=== PATIENT | female | born 1990 | race Caucasian/White ===

== ENCOUNTER 2024-09-21 06:13 | Day surgery (SDC) | payer OTHER ==
[2024-09-15 16:46] VITALS: BMI 27.4
[2024-09-21] MEDS ORDERED: ROCURONIUM BROMIDE 50 MG/5 ML SYRINGE ONE (11:46)
[2024-09-21] MEDS ORDERED: PROPOFOL 20 ML ONE (11:46)
[2024-09-21] MEDS ORDERED: MIDAZOLAM HCL 2 MG/2 ML SINGLE DOSE VIAL ONE (11:47)
[2024-09-21] MEDS ORDERED: NEOSTIGMINE METHYLSULFATE 0.5 MG/1 ML - 10 ML MDV ONE (12:31)
[2024-09-21] MEDS ORDERED: DEXAMETHASONE SOD PHOSPHATE 4 MG/1 ML VIAL ONE (12:31)
[2024-09-21] MEDS ORDERED: ONDANSETRON 4 MG/2 ML VIAL ONE (12:31)
[2024-09-21] MEDS ORDERED: KETOROLAC TROMETHAMINE 30 MG/1 ML VIAL ONE (12:31)
[2024-09-21] MEDS ORDERED: ACETAMINOPHEN INJECTION 100 ML ONE (13:05)
[2024-09-21] MEDS ORDERED: ONDANSETRON 4 MG/2 ML VIAL IVPUSH PRN (13:10)
[2024-09-21] MEDS ORDERED: LACTATED RINGERS SOLUTION 1,000 ML IV SCH (13:15)
[2024-09-21] MEDS: ACETAMINOPHEN 1000 MG/100 ML BAG IVPB ONE (13:17)
[2024-09-21 14:14] VITALS: RESP 20
[2024-09-21 15:38] VITALS: BP 98/59; PULSE 60; TEMP 97.7
== END 2024-09-21 15:20 | disposition home or self-care (01) ==
LOC: JASU-SURG 06:13
PROVIDERS: ATTEND Specialist
PROC: 0UPD7HZ Removal of Contraceptive Device from Uterus and Cervix, Via Natural or Artificial Opening (ICD-10-PCS; 2024-09-21)
PROC: 0UB74ZZ Excision of Bilateral Fallopian Tubes, Percutaneous Endoscopic Approach (ICD-10-PCS; principal; 2024-09-21 10:30)
DX: Z30.2 Encounter for sterilization (principal)
CPT/HCPCS: 36415; 80053; 85027; 85610; 85730; 86850; 86900; 86901; 88300-TC; 88305-TC; 94760